=== PATIENT | male | born 1980 | race Two or more races ===

== ENCOUNTER 2024-02-27 10:47 | Emergency (ER) | payer OTHER ==
[~2024-02-27] VITALS: Ht 172.7 cm; Wt 105.3 kg
[2024-02-27 12:18] VITALS: BP 135/89; PULSE 94; RESP 20; TEMP 99.3; O2SAT 96
[2024-02-27] MEDS: KETOROLAC TROMETH 60MG/2ML VIAL IM ONE (12:54)
--- NOTE | 2024-02-27 13:05 | ED.PDOC ---
History of Present Illness(SKN HPI Comments A 43 YEAR OLD MALE PRESENTS TO THE ED WITH COMPLAINT OF RASH. PATIENT STATES THAT HE DEVELOPED A SPONTANEOUS PAINFUL RASH ON THE LEFT SIDE OF HIS BODY ON 02/25/24, WHICH SPREADS FROM HIS LEFT CHEST TO LEFT LOWER BACK. PATIENT DENIES FEVER, CHILLS, SHORTNESS OF BREATH, CHEST PAIN, ABDOMINAL PAIN, NAUSEA, VOMITING, HEADACHE, OR OTHER COMPLAINTS. NO OTHER SYMPTOMS OR MODIFYING FACTORS AT THIS TIME. PATIENT IS ALERT, ORIENTED X 4, AND HAS STEADY GAIT. Chief Complaint: Rash Time Seen by MD: 12:30 History of Present Illness: Nurses Notes, Medications Allergies: Coded Allergies: NO KNOWN ALLERGIES (Unverified , 02/27/24) Information Source: Patient Mode of Arrival: Ambulatory Severity: Mild Timing: Days Duration: Since onset Prehospital treatment: None Location: Abdomen, Back, Chest Mechanism: Spontaneous Onset Developed: Rash Object: None Condition of Object: None Wound Type: None History of: None Associated Signs and Symptoms: None Past Medical History PAST MEDICAL HISTORY: Unknown Surgical History: Denies all surgeries Family History Family History: Unknown Social History Smoker: Non-Smoker Alcohol: Denies ETOH Use Drugs: Denies Drug Use Lives In: Home Constitutional: denies: chills, diaphoresis, fatigue, fever, malaise, sweats, weakness, others EENTM: denies: blurred vision, double vision, ear bleeding, ear discharge, ear drainage, ear pain, ear ringing, eye pain, eye redness, hearing loss, mouth pain, mouth swelling, nasal discharge, nose bleeding, nose congestion, nose pain, photophobia, tearing, throat pain, throat swelling, voice changes, others Respiratory: denies: cough, hemoptysis, orthopnea, SOB at rest, shortness of breath, SOB with excertion, stridor, wheezing, others Cardiovascular: denies: chest pain, dizzy spells, diaphoresis, Dyspnea on exertion, edema, irregular heart beat, left arm pain, lightheadedness, palpitations, PND, syncope, others Gastrointestinal: denies: abdomen distended, abdominal pain, blood streaked bowels, constipated, diarrhea, dysphagia, difficulty swallowing, hematemesis, melena, nausea, poor appetite, poor fluid intake, rectal bleeding, rectal pain, vomiting, others Genitourinary: denies: burning, dysuria, flank pain, frequency, hematuria, incontinence, penile discharge, penile sore, pain, testicle pain, testicle swelling, urgency, others Neurological: denies: dizziness, fainting, headache, left sided numbness, left sided weakness, numbness, paresthesia, pre-existing deficit, right sided numbness, right sided weakness, seizure, speech problems, tingling, tremors, weakness, others Musculoskeletal: denies: back pain, gout, joint pain, joint swelling, muscle pain, muscle stiffness, neck pain, others Integumetry: reports: lesions, rash; denies: bruises, change in color, change in hair/nails, dryness, laceration, lumps, wounds, others Allergic/Immunocompromised: denies: Difficulty Healing, Frequent Infections, Hives, Itching, others Hematologic/Lymphatic: denies: anemia, blood clots, easy bleeding, easy bruising, swollen glands, others Endocrine: denies: excessive hunger, excessive sweating, excessive thirst, excessive urination, flushing, intolerance to cold, intolerance to heat, unexplained weight gain, unexplained weight loss, others Psychiatric: denies: anxiety, bipolar disorder, depression, hopeless, panic disorder, schizophrenia, sleepless, suicidal, others All Other Systems: Reviewed and Negative Physical Exam General Appearance: No Apparent Distress, Normal HEENT: Normal ENT Inspection, PERRL/EOMI, Pharynx Normal, TMs Normal Neck: Full Range of Motion, Non-Tender, Normal, Normal Inspection Respiratory: Chest Non-Tender, Lungs Clear, No Accessory Muscle Use, No Respiratory Distress, Normal Breath Sounds Cardiovascular: No Edema, No JVD, No Murmur, No Gallop, Normal Peripheral Pulses, Regular Rate/Rhythm Breast Exam: Deferred Gastrointestinal: No Organomegaly, Non Tender, No Pulsatile Mass, Normal Bowel Sounds, Soft Genitalia: Deferred Pelvic: Deferred Rectal: Deferred Extremities: No calf tenderness, Normal capillary refill, Normal inspection, Normal range of motion, Non-tender, No pedal edema Musculoskeletal : Apperance: Normal Neurologic: Alert, clerical proofreader II-XII nml as Tested, No Motor Deficits, Normal Affect, Normal Mood, No Sensory Deficits Cerebellar Function: Normal Reflexes: Normal Skin: Dry, Rash (A GROUP OF ERYTHEMA AND VESICLE SKIN RASH ON LEFT LOWER ABD WALL TO LEFT MIDDLE BACK. +HERPES ZOSTER. ), Warm Peripheral Pulses: 2+ carotid (R), 2+ carotid (L) Lymphatic: No Adenopathy Was a procedure done? Was a procedure done?: No Differential Diagnosis (INTG) Differential Diagnosis: N/A Differential Diagnosis: Atopic dermatitis, Contact Dermatitis, Herpes Zoster/Simplex, Rosacea X-Ray, Labs, Meds, VS Vital Signs Date Time Temp Pulse Resp B/P (MAP) Pulse Ox O2 Delivery O2 Flow Rate FiO2 02/27/24 12:18 99.3 94 20 135/89 (104) 96 99.3 02/27/24 12:18 94 20 96 Room Air 02/27/24 11:09 99.3 94 20 135/89 (104) 96 Current Medications Medications (Trade) Dose Ordered Sig/Ken Route Start Time Stop Time Status Last Admin Ketorolac Tromethamine (Toradol Injection) 60 mg ONCE ONCE IM 02/27/24 12:45 02/27/24 12:46 DC 02/27/24 12:54 X-Ray, Labs, Meds, VS Comment EXTERNAL MEDICAL RECORDS REVIEWED: [NONE] INDEPENDENT HISTORIANS: [NONE] SOCIAL DETERMINANTS OF HEALTH: [NONE] LABS ORDERED: NONE REVIEWED AND INTERPRETED RESULTS: NONE IMAGING ORDERED: NONE TREATMENTS ORDERED: TORADOL 60MG IM PROCEDURES PERFORMED: NONE CRITICAL CARE TIME: NONE I HAVE DISCUSSED THE PATIENT WITH THE ATTENDING PHYSICIAN DR. ZARATE AND HE AGREES WITH THE PATIENT'S PLAN OF CARE AND DISPOSITION. BASED ON HISTORY OF PRESENT ILLNESS, AND PHYSICAL EXAM, PATIENT WILL BE DISCHARGED HOME. SHARED DECISION MAKING: PATIENT INSTRUCTED TO FOLLOW UP WITH PRIMARY CARE PROVIDER IN 1-2 DAYS FOR RE-EVALUATION OF SYMPTOMS. PATIENT VERBALIZES UNDERSTANDING TO RETURN TO ED FOR NEW OR WORSENING SYMPTOMS OR IF FOLLOW UP WITH PCP CANNOT BE OBTAINED. PATIENT FEELS COMFORTABLE GOING HOME AT THIS TIME. ALL QUESTIONS ADDRESSED AT TIME OF DISCHARGE. Time of 1ST Reevaluation: 13:20 Reevaluation 1ST: Improved Patient Education/Counseling: Diagnosis, Treatment, Need For Follow Up Family Education/Counseling: Diagnosis, Treatment, Need For Follow Up, No Family Present Medical Screening: No EMC Exist At This Time Departure 1 Departure Time of Disposition: 13:21 Impression: Primary Impression: Herpes zoster Qualified Codes: B02.9 - Zoster without complications Disposition: 01 HOME / SELF CARE / HOMELESS Condition: Stable Additional Instructions: FOLLOW UP WITH PCP IN 1-2 DAYS. TAKE MEDICATIONS PRESCRIBED. RETURN TO ED FOR ANY NEW OR WORSENING SYMPTOMS. e-Prescriptions Triamcinolone Acetonide (Triamcinolone Acetonide) 0.025 % Cre 1 APPLIC TOP BID, #30 GRAMS Prov: GEOFFREY SHETH 02/27/24 Ibuprofen (Ibuprofen) 800 Mg Tab 1 TAB PO TID, #30 TAB Prov: GEOFFREY SHETH 02/27/24 Acyclovir (Acyclovir) 800 Mg Tab 800 MG PO 5XD, #35 TAB Prov: GEOFFREY SHETH 02/27/24 Discharged With: Self Critical Care Note Critical Care Time?: No Stability Stability form required: No Heart Score Heart Score: Heart Score Response (Comments) Value History N/A 0 EKG N/A 0 Age N/A 0 Risk Factors N/A 0 Troponin N/A 0 Total 0 I personally scribed for GEOFFREY SHETH ([email or web address]) on 02/27/24 at 13:05. Electronically submitted by Drea Sadler ([email or web address]). I personally scribed for GEOFFREY SHETH ([email or web address]) on 02/27/24 at 13:11. Electronically submitted by Drea Sadler ([email or web address]). I personally scribed for GEOFFREY SHETH ([email or web address]) on 02/27/24 at 13:14. El ectronically submitted by Dio Broderick ([email or web address]). GEOFFREY SHETH Feb 27, 2024 13:05
[2024-02-27] MEDS ORDERED: ACYC1TAB3 PO (13:16)
[2024-02-27] MEDS ORDERED: TRIA0.02 TOP (13:16)
[2024-02-27] MEDS ORDERED: IBUP-1456 PO (13:16)
== END 2024-02-27 13:20 | disposition home or self-care (01) ==
LOC: ER 10:47
DX: B02.9 Zoster without complications (principal)
CPT/HCPCS: 96372; 99283; J1885

== ENCOUNTER 2025-02-16 17:00 | Emergency (ER) | payer OTHER ==
[~2025-02-16] VITALS: Ht 175.3 cm; Wt 104.7 kg
[~2025-02-16 17:00] MED LIST: ACYC1TAB3 PO; IBUP-1456 PO; TRIA0.02 TOP
--- NOTE | 2025-02-16 17:50 | DVH ---
EXAM: XY CHEST PORTABLE CLINICAL HISTORY: COUGH TECHNIQUE: Single AP view of the chest WID: COMPARISON: None FINDINGS: Lines and tubes: None Chest: The heart size and pulmonary vasculature is within normal limits. No pleural effusion, pneumothorax, or consolidation. The osseous structures are grossly intact. IMPRESSION: 1. No acute cardiopulmonary abnormality.
--- NOTE | 2025-02-16 18:03 | ED.PDOC ---
SOB-HPI HPI Comments HPI: 44 year old male presents to the ED with a chief complaint of cough onset 2 days. Patient states he has been experiencing productive cough with phlegm, body aches, sore throat, headache, nasal congestion, loss of smell. Patient has not taken medication. Denies fever, chills, dizziness, chest pain, shortness of breath, nausea, vomiting, diarrhea. NO other symptoms or modifying factors present at this time. Initial Vitals BP: 167/111 HR: 119 RR: 18 O2: 94% Temp: 99.1 F Past Medical History: HTN Past Surgical History: Denies Social History: Denies smoking. Denies ETOH. Denies drug use. Medications: Denies Allergies: NKDA HPI: Poor Historian. REVIEW OF SYSTEMS: CONSTITUTIONAL: Denies acute: fever, diaphoresis, chills, generalized weakness. HEAD: Denies acute: photophobia Eyes: Denies acute: Double vision, vision loss, eye pain, eye discharge. EARS: Denies acute: tinnitus, hearing loss, ear discharge, ear pain, THROAT: Denies acute: swelling, difficulty swallowing , pain with swallowing, change in voice. NECK: Denies acute: neck pain, neck swelling, stiff neck. HEART: Denies acute : chest pain, palpitations, LUNGS: Denies acute: SOB, wheezing, hemoptysis ABDOMEN: Denies acute: abdominal pain, Nausea, Vomiting, diarrhea, melena , hematemesis, hematochezia SKIN: Denies acute: rash, redness, lesions, itchiness. EXTREMITIES: Denies acute: calf pain, numbness, tingling, weakness, denies pain in extremity. Denies acute: Low back pain. Neuro: Denies acute: focal neurological deficit, motor or sensory focal neurological deficit, tremors, seizure like activity, confusion, dizziness, change in mental status, loss of bowel or bladder function, cauda equina like symptoms. : Denies acute: dysuria, hematuria, flank pain, increase in urinary frequency. PSYCH: Denies acute: hallucination, suicidal ideation, homicidal ideation. PHYSICAL EXAM: General: -----no---acute distress, awake and alert. Head: normocephalic, atraumatic. No raccoon's eyes, no reich sign. Neck: supple, trachea is midline, no swelling. Throat: Normal phonation. No erythema, no exudates, no obstruction, no swelling. Eyes:, no erythema, no purulent discharge, no proptosis, no icterus. Heart: regular rate, regular rhythm, no significant murmur appreciated. Lungs: no apparent respiratory distress, Able to speak in full sentences. No wheezing, no rhonchi, no crackles. No stridors Clear to auscultation bilaterally. Abdomen: non tender to palpation, non distended, soft, no guarding, no rebound, + bowel sounds. Neuro: Awake, Alert, oriented to name, self, situation, follows commands GCS=15. Speech is normal. Skin: no petechia, no purpura, no cyanosis, non-pale, not jaundice. Lower extremities: --no - Pitting edema no deformity, no focal swelling, no calf TTP. Makes eye contact. moves all four extremities. Face: no apparent facial droop. Ambulating in the ED independently. ED COURSE: DISCLAIMER: This medical document was created using an electronic medical record system with voice recognition software and computerized dictation system. Although this document has been carefully reviewed, there might still be some phonetic and typographical errors. Occasional wrong-word or "sound-alike" substitutions may have occurred due to the inherent limitations of voice recognition software. These areas are purely typographical due to imperfections of the software programs and do not reflect any compromise in the patient's medical care. Please read the chart carefully and recognize, using context, where these substitutions have occurred. Chief Complaint: Flu like Time Seen by MD: 17:50 Reviewed notes: Medications, Allergies Information Source: Patient Mode of Arrival: Ambulatory Timing: Days Duration: Since onset Context: At Rest History of: None Prehospital treatment: None Past Medical History PAST MEDICAL HISTORY: HTN Surgical History: Denies all surgeries Family History Family History: Unknown Social History Smoker: Non-Smoker Alcohol: Denies ETOH Use Drugs: Denies Drug Use Lives In: Home Was a procedure done? Was a procedure done?: No X-Ray, Labs, Meds, VS Vital Signs Date Time Temp Pulse Resp B/P (MAP) Pulse Ox O2 Delivery O2 Flow Rate FiO2 02/16/25 18:34 106 16 98 Room Air 02/16/25 18:34 89.0 106 16 156/87 (110) 98 89.0 02/16/25 17:07 99.1 119 18 167/11 99 99.1 Lab Test 02/16/25 17:55 Range/Units Influenza Type A Antigen Negative Negative Influenza Type B Antigen Negative Negative SARS-CoV-2 Antigen (Rapid) Negative NEGATIVE [place] [address] Ph: [phone] DIAGNOSTIC IMAGING Diagnostic Imaging Report : [id number] Signed PATIENT: CHRIS JOHN SR ACCT: [id number] UNIT: [id number] : 1980 LOC: ER ROOM / BED: / AGE / SEX: 44 / M ADM STATUS: REG ER SERVICE 15 ORDERING PHYSICIAN: RAMON HANSON DO PROCEDURE(s): CXRP - CHEST PORTABLE REASON: COUGH ORDER NUMBER(s): [id number], ACCESSION NUMBER(s): [id number] EXAM: XY CHEST PORTABLE CLINICAL HISTORY: COUGH TECHNIQUE: Single AP view of the chest WID: COMPARISON: None FINDINGS: Lines and tubes: None Chest: The heart size and pulmonary vasculature is within normal limits. No pleural effusion, pneumothorax, or consolidation. The osseous structures are grossly intact. IMPRESSION: 1. No acute cardiopulmonary abnormality. ATED BY: JOSE DRAKE MD DICTATED DATE/TIME: 02/16/251747 SIGNED BY: JOSE DRAKE MD SIGNED DATE/TIME: 02/16/251747 CC: Time of 1ST Reevaluation: 18:20 Reevaluation 1ST: Unchanged Patient Education/Counseling: Diagnosis, Treatment Family Education/Counseling: No Family Present Departure 1 Departure Time of Disposition: 19:19 Impression: Primary Impression: URI (upper respiratory infection) Additional Impression: Bronchitis Disposition: 01 HOME / SELF CARE / HOMELESS Condition: Stable Additional Instructions: Additional instructions: Please read all instructions provided in this packet carefully. You MUST follow-up with your primary care/family doctor in 1 to 2 days. If you are unable to see your primary care/family doctor, please return to our emergency room for re-assessment and re-evaluation in 1 to 2 days. Return to the emergency room here in our facility or to the nearest ER [facility] if your symptoms change or worsen. CONSULTATIONS: you MUST Follow-up for consultation as soon as possible with: --pulmonology in 1-2 days. Please call for appointment. You MUST call the consultants office yourself to make an appointment. You may need to arrange that through your insurance and/or your primary/family doctor. If you are unable to see the clinical practice consultant in 1 to 2 days, you must return to our emergency room (or any other ER of your choice) for re-assessment and re- evaluation. Adequate fluid hydration. Although you have been discharged from the Emergency Department, this does not mean that you have a "clean bill of health". No definitive diagnosis for your symptoms has been made today. It is possible that you are in the process of developing a serious illness. This is why you must return to the ED without fail if any new or worsening symptoms develop. Below is a copy of your radiological report for follow up: [place] [address] Ph: [phone] DIAGNOSTIC IMAGING Diagnostic Imaging Report : [id number] Signed PATIENT: CHRIS JOHN SR ACCT: [id number] UNIT: [id number] : 1980 LOC: ER ROOM / BED: / AGE / SEX: 44 / M ADM STATUS: REG ER SERVICE 15 ORDERING PHYSICIAN: RAMON HANSON DO PROCEDURE(s): CXRP - CHEST PORTABLE REASON: COUGH ORDER NUMBER(s): [id number], ACCESSION NUMBER(s): [id number] EXAM: XY CHEST PORTABLE CLINICAL HISTORY: COUGH TECHNIQUE: Single AP view of the chest WID: COMPARISON: None FINDINGS: Lines and tubes: None Chest: The heart size and pulmonary vasculature is within normal limits. No pleural effusion, pneumothorax, or consolidation. The osseous structures are grossly intact. IMPRESSION: 1. No acute cardiopulmonary abnormality. ATED BY: JOSE DRAKE MD DICTATED DATE/TIME: 02/16/251747 SIGNED BY: JOSE DRAKE MD SIGNED DATE/TIME: 02/16/251747 CC: e-Prescriptions Azithromycin (Zithromax Tri-Sudheer) 500 Mg Tab 500 MG PO DAILY for 6 Days, #6 TAB Prov: RAMON HANSON DO 02/16/25 Discharged With: Self Critical Care Note Critical Care Time?: No I personally scribed for RAMON HANSON DO ([email or web address]) on 02/16/25 at 18:03. Electronically submitted by Heather Davis ([email or web address]). I personally scribed for RAMON HANSON DO ([email or web address]) on 02/16/25 at 18:21. Electronically submitted by Heather Davis ([email or web address]). RAMON HANSON DO Feb 16, 2025 18:03
[2025-02-16 18:34] VITALS: BP 156/87; PULSE 106; RESP 16; TEMP 89; O2SAT 98
[2025-02-16 18:45] LABS: COVID19 ANTIGEN SOFIA FIA NEGATIVE (NEGATIVE)
[2025-02-16] MEDS ORDERED: AZITTAB2 PO (19:20)
== END 2025-02-16 20:04 | disposition home or self-care (01) ==
LOC: ER 17:00
DX: J06.9 Acute upper respiratory infection, unspecified (principal); J40 Bronchitis, not specified as acute or chronic; I10 Essential (primary) hypertension; Z91.148 Patient's other noncompliance with medication regimen for other reason; Z20.822 Contact with and (suspected) exposure to COVID-19; Z79.899 Other long term (current) drug therapy
CPT/HCPCS: 36415; 71045; 87426; 87804